=== PATIENT | female | born 1975 | race Caucasian/White ===

== ENCOUNTER 2021-10-22 21:52 | Outpatient (CLI) | payer OTHER, SELFPAY ==
[2021-10-22 22:09] LABS: Absolute Lymphocyte Count 2.59 X10^3/uL (0.83-4.51); Absolute Neutrophil Count 4.7 X10^3/uL (2.0-7.7); Basophil# 0.02 X10^3/uL; Basophil% 0.3 % (0-1); Eosinophil# 0.12 X10^3/uL; Eosinophils% 1.5 % (0-5); Hematocrit 44.1 % (37-47); Hemoglobin 14.2 g/dL (12.0-15.0); Lymphocyte # 2.59 X10^3/ul (0.83-4.51); Lymphocyte % 32.8 % (19-41); Mean Corp Hgb Conc 32.2 g/dL (32-36); Mean Corpuscular Hgb 29.1 pg (27.0-32.0); Mean Corpuscular Volume 90.4 fL (81-99); Mean Platelet Vol. 12.3 fl (6.2-12.0); Monocyte% 6.3 % (0-10); NRBC Flagged by Analyzer 0 % (0-5); Neutrophil # 4.65 X10^3/uL (2.7-7.7); Neutrophil % 58.8 % (47-70); Platelet Count 210 K/mm3 (150-450); RBC Distribution Width SD 42.7 fl (35.1-43.9); Red Blood Count 4.88 M/mm3 (4.2-5.4); White Blood Count 7.9 K/mm3 (4.4-11.0)
[2021-10-22 22:37] LABS: ALB/GLOB Ratio 1.1 RATIO (0.9-2.4); AST(SGOT) 19 U/L (15-37); Alanine Aminotransfer ALT/SGPT 42 U/L (13-56); Albumin, Serum 3.6 g/dL (3.2-5.0); Alkaline Phosphatase 97 U/L (45-117); Anion Gap 7 (5-15); BUN 16 mg/dL (7-18); BUN/Creat Ratio 21.5 RATIO (10-20); Chloride 104 mmol/L (98-107); Creatinine, Serum 0.74 mg/dL (0.55-1.02); EST Glomerular Filtration Rate 90 mL/min (>60); Est Glom Filt Rate - Afr Amer 108 mL/min (>60); Globulin 3.4 g/dL (2.2-4.2); Glucose 115 mg/dL (74-106); Potassium 4.2 mmol/L (3.5-5.1); Sodium Level 140 mmol/L (136-145)
[2021-10-22 23:08] LABS: Vitamin B12 286 pg/mL (211-911)
[2021-10-24 17:38] LABS: EBV Acute VCA IgM < 36.0 U/mL (0.0-35.9); EBV Nuclear Antigen IgG < 18.0 U/mL (0.0-17.9); EBV-VCA IgG < 18.0 U/mL (0.0-17.9)
[2021-10-25 15:08] LABS: Vitamin D 1,25-Dihydroxy 13.5 pg/mL (19.9-79.3)
[2021-10-25 19:53] LABS: ANTINUCLEAR ANTIBODIES DIRECT Negative (Negative)
== END 2021-10-22 23:59 | disposition short-term general hospital (02) ==
PROVIDERS: Visit Provider Nurse Practitioner
DX: E55.9 Vitamin D deficiency, unspecified (principal); E53.9 Vitamin B deficiency, unspecified; R73.9 Hyperglycemia, unspecified; M25.50 Pain in unspecified joint; K21.9 Gastro-esophageal reflux disease without esophagitis
CPT/HCPCS: 80053; 82607; 82652; 83036; 85025; 86038; 86225; 86235; 86664; 86665

== ENCOUNTER → 2023-07-13 | Outpatient (CLI) | payer OTHER, SELFPAY | END | disposition home or self-care (01) | PROVIDERS: PCP Nurse Practitioner; Visit Provider Nurse Practitioner | DX: R35.0 Frequency of micturition (principal) | CPT/HCPCS: 87086 ==

== ENCOUNTER 2024-06-02 09:08 | Emergency (ER) | payer OTHER, SELFPAY ==
[2024-06-02 09:08] VITALS: BP 161/100; PULSE 93; RESP 14; TEMP 36.8; O2SAT 96
[2024-06-02 09:11] VITALS: BMI 47.3
--- NOTE | 2024-06-02 10:15 | EDS_ITS ---
HPI History of Present Illness Chief Complaint: Allergic Reaction Narrative Narrative: 48-year-old female past medical history of borderline diabetes, rosacea, presents with a rash to her bilateral lower extremities along with redness and swelling that she has had since Thursday, almost 3 days ago. She relates history that she was diagnosed with a UTI last week at the [facility] clinic. She was placed on nitrofurantoin, but the urine culture returned and reportedly her antibiotics were ineffective so she was changed to ciprofloxacin. Thursday morning, 4 days ago she took ciprofloxacin as she has allergies to sulfa and to Augmentin as well as sulfa. She developed a raised, itchy rash and leg swelling of her bilateral lower extremities shortly thereafter within an hour. Since then, she states she feels feverish, has a headache, may be mildly nauseated. Her legs feel tight and swollen as is her skin is going to burst. [facility] Medical History Hypertension Osteoarthritis Depression Anxiety D AND C Asthmatic bronchitis Endometriosis Ovarian cyst Recurrent UTI OCD (obsessive compulsive disorder) Hyperthyroidism Hyperlipidemia Seasonal allergies Rosacea Home Medications ?Medication ?Instructions ?Recorded ?Last Taken ?Type ergocalciferol (vitamin D2) 1,250 1,250 mcg PO QWEEK 3 months #13 01/28/22 Unknown Rx mcg (50,000 unit) capsule caps epinephrine 0.3 mg/0.3 mL 0.3 ml IM ONCE #1 ea 07/03/22 Unknown Rx injection, auto-injector multivitamin 1 tab PO DAILY 08/08/22 Unknown History metformin 500 mg tablet 500 mg PO DAILY #90 tabs 07/13/23 Unknown Rx omeprazole 40 mg capsule,delayed See Rx Instructions .Route 07/13/23 Unknown Rx release .COMPLEX #90 caps sertraline 100 mg tablet 200 mg (2 x 100 mg) PO QDAY #180 07/13/23 Unknown Rx tabs ciprofloxacin HCl 500 mg tablet 500 mg PO BID #14 tabs 09/01/23 Unknown Rx (Cipro) phenazopyridine 200 mg tablet 200 mg PO TID PRN pain #14 tabs 09/01/23 Unknown Rx (Pyridium) aspirin 81 mg tablet,delayed 81 mg PO DAILY 06/02/24 Unknown History release (Adult Aspirin Regimen) prednisone 20 mg tablet 40 mg (2 x 20 mg) PO DAILY 10 days 06/02/24 Unknown Rx #20 tabs Allergy/AdvReac Type Severity Reaction Status Date / Time Sulfa (Sulfonamide Allergy Severe Confusion, Verified 06/02/24 09:09 Antibiotics) amoxicillin (From Augmentin) Allergy Mild Rash Verified 06/02/24 09:09 clavulanic acid (From Allergy Mild Rash Verified 06/02/24 09:09 Augmentin) ciprofloxacin (From Cipro) Allergy Rash Verified 06/02/24 09:09 adhesive tape AdvReac rash Verified 06/02/24 09:09 bee venom protein (honey bee) AdvReac UNCONSCIOUS Verified 06/02/24 09:09 NESS Family History Father Diabetes Heart disease High cholesterol Kidney disease Mother Kidney disease Aunt Diabetes Hypertension High cholesterol Grandfather CVA (cerebral vascular accident) Grandmother Thyroid disorder Other Bladder cancer Cancer FHx: kidney cancer Surgical History H/O removal of cyst Social History Smoking Status: Current every day smoker tobacco type: cigarettes second hand exposure: Yes ROS ROS ED ROS Narrative Constitutional: No fever, no chills. HEENT: No sore throat. No neck pain. No loss of vision. No rhinorrhea. Cardiovascular: No chest pain. No palpitations. No pedal edema. Respiratory: No cough, no shortness of breath. Abdominal: No abdominal pain. Questionable nausea. No vomiting. Genitourinary: No dysuria. No hematuria. Musculoskeletal: No myalgias. No arthralgias. Neurologic: No headaches. No dizziness. No lightheadedness. Skin: Positive raised, itchy rash bilateral lower extremities rash. Positive redness/change in color. Psychiatric: No depression. No anxiety. EXAM Physical Exam Narrative Exam Narrative: Afebrile. Vital signs noted. Nontoxic-appearing. HEENT: Normocephalic. Atraumatic. PERRL, EOMI. Neck soft and supple. No point tenderness or step off. No mucosal lesions. Cardiovascular: Regular rate and rhythm. No murmurs, rubs, or gallops appreciated. Respiratory: No tachypnea. Lungs clear to auscultation bilaterally. Gastrointestinal: Abdomen soft, nontender, with normoactive bowel sounds. No rebound or guarding. Neurological: Awake. Alert. Nonfocal, nonlateralizing. Skin: Positive maculopapular rash on bilateral lower extremities, nonblanchable. Mild swelling bilateral lower extremities equal and symmetric. Palpable dorsalis pedis pulses bilaterally. Musculoskeletal: Mild bilateral symmetric pedal edema. Full range of motion extremities. Const Vital Signs: 06/02/24 09:08 06/02/24 11:29 Temperature 98.2 F Temperature Source Temporal Pulse Rate 93 Respiratory Rate 14 Blood Pressure 161/100 H 137/91 H Blood Pressure Mean 120 106 Pulse Ox 96 Oxygen Delivery Method Room Air MDM MDM MDM Narrative Medical decision making narrative: Differential diagnosis includes but not limited to drug rash versus vasculitis. She not meeting any sepsis criteria currently, she is not hypotensive. I will obtain baseline laboratory work including a lactic acid, and she was given Solu- Medrol intravenously. I will obtain a UA as well as she has multiple allergies and is still having dysuria. Differential diagnosis also includes cellulitis of bilateral lower extremities. I have low concern for Haas-Abrney reaction. I reviewed her laboratory work and she has a normal white count of 8.6, hemoglobin normal at 14.9, platelet count slightly low at 120. This is new for her, but I do not feel that she requires any platelet transfusion. This may go along with more vasculitis type symptoms. He was advised to get this rechecked in the future. Her CMP is grossly unremarkable. Urinalysis obtained and reviewed and is negative for infection. After Solu-Medrol, she states she is feeling improved. States she is tired. I do feel she requires admission or further antibiotics. I will write her prescription for a burst of steroids for 10 days as I feel this is probably more of a drug reaction/localized allergic reaction. She was told to avoid use of Cipro in the future. I feel she can be discharged safely home with follow-up. Return instructions reviewed. Disposition is discharged home in stable condition. History & Record Review Discussion w/independent historian: Patient Lab Data Attestation: I reviewed the patient's lab results. Labs: Laboratory Results - last 24 hr 06/02/24 06/02/24 10:35 10:37 WBC 8.6 RBC 5.00 Hgb 14.9 Hct 45.8 MCV 91.6 MCH 29.8 MCHC 32.5 RDW Std Deviation 44.7 H RDW Coeff of Aman 13.2 Plt Count 120 L MPV 11.4 Immature Gran % (Auto) 0.400 Neut % (Auto) 72.0 H Lymph % (Auto) 17.6 L [place] % (Auto) 4.8 Eos % (Auto) 4.8 Baso % (Auto) 0.4 Absolute Neuts (auto) 6.2 Absolute Lymphs (auto) 1.51 Nucleated RBC % 0 Sodium 141 Potassium 3.8 Chloride 104 Carbon Dioxide 33.0 H Anion Gap 4 L BUN 7 Creatinine 0.71 Estim Creat Clear Calc 160.88 Est GFR (MDRD) Af Amer 114 Est GFR (MDRD) Non-Af 94 BUN/Creatinine Ratio 9.9 L Glucose 115 H Lactic Acid 1.2 Calcium 9.1 Total Bilirubin 0.40 AST 21 ALT 55 Alkaline Phosphatase 87 Total Protein 6.9 Albumin 3.4 Globulin 3.5 Albumin/Globulin Ratio 1.0 Urine Color Yellow Urine Clarity Clear Urine pH 7.0 Ur Specific [place] 1.010 Urine Protein 15 H Urine Glucose (UA) Normal Urine Ketones Negative Urine Occult Blood Negative Urine Nitrite Negative Urine Bilirubin Negative Urine Urobilinogen Normal Ur Leukocyte Esterase 25 H Urine RBC 0 SEEN Urine WBC 0-5 SEEN Ur Squamous Epith Cells 0 SEEN Urine Bacteria 1+ Urine Mucus 0 SEEN Discharge Plan Triage Chief Complaint: Allergic Reaction ED Provider: Paulino Donato Dx/Rx/DC Orders Clinical Impression: Allergic drug reaction, Drug rash, Thrombocytopenia Instructions: Thrombocytopenia, ED Allergic Reaction Local Other, ED Drug Reaction, Other Prescriptions: New prednisone 20 mg tablet 40 mg PO DAILY 10 Days Qty: 20 0RF No Action multivitamin Tablet 1 tab PO DAILY ergocalciferol (vitamin D2) 1,250 mcg (50,000 unit) capsule 1,250 mcg PO QWEEK 90 Days Qty: 13 3RF epinephrine 0.3 mg/0.3 mL auto-injector 0.3 ml IM ONCE Qty: 1 12RF Rx Instructions: as a single dose metformin 500 mg tablet 500 mg PO DAILY Qty: 90 3RF omeprazole 40 mg capsule,delayed release(DR/EC) See Rx Instructions .ROUTE .COMPLEX Qty: 90 3RF Dose Instruction: TAKE 1 CAPSULE BY MOUTH DAILY Rx Instructions: TAKE 1 CAPSULE BY MOUTH DAILY sertraline 100 mg tablet 200 mg PO QDAY Qty: 180 3RF ciprofloxacin HCl [Cipro] 500 mg tablet 500 mg PO BID Qty: 14 0RF phenazopyridine [Pyridium] 200 mg tablet 200 mg PO TID PRN (Reason: pain) Qty: 14 0RF aspirin [Adult Aspirin Regimen] 81 mg tablet,delayed release (DR/EC) 81 mg PO DAILY Primary Care Provider: Isabel Conde NP Referrals: Isabel Conde NP, [facility] [Primary Care Provider] - 3-5 Days Activity Restrictions/Additional Instructions: Avoid use of Cipro in the future. Start steroids tomorrow. Return with increased swelling of the legs, worsening rash, new or worsening symptoms. Take Benadryl at home, 25 to 50 mg every 6 hours especially for the next few days. You may need to have your platelets rechecked by your primary care provider. Print Language: Turkmen Disposition Disposition: Home, Self Care
[2024-06-02] MEDS: MethylPREDNISolone 125 MG/2 ML Vial 80 MG IV (10:32)
[2024-06-02 10:42] LABS: Absolute Lymphocyte Count 1.51 X10^3/uL (0.83-4.51); Absolute Neutrophil Count 6.2 X10^3/uL (2.0-7.7); Basophil# 0.03 X10^3/uL; Basophil% 0.4 % (0-1); Eosinophil# 0.41 X10^3/uL; Eosinophils% 4.8 % (0-5); Hematocrit 45.8 % (37-47); Hemoglobin 14.9 g/dL (12.0-15.0); Lymphocyte # 1.51 X10^3/ul (0.83-4.51); Lymphocyte % 17.6 % (19-41); Mean Corp Hgb Conc 32.5 g/dL (32-36); Mean Corpuscular Hgb 29.8 pg (27.0-32.0); Mean Corpuscular Volume 91.6 fL (81-99); Mean Platelet Vol. 11.4 fl (6.2-12.0); Monocyte# 0.41 X10^3/uL; Monocyte% 4.8 % (0-10); NRBC Flagged by Analyzer 0 % (0-5); Neutrophil # 6.17 X10^3/uL (2.7-7.7); Platelet Count 120 K/mm3 (150-450); RBC Distribution Width CV 13.2 % (11.6-14.6); RBC Distribution Width SD 44.7 fl (35.1-43.9); White Blood Count 8.6 K/mm3 (4.4-11.0)
[2024-06-02 10:45] LABS: Mucous, Urine 0 SEEN /hpf (<or=2+); Red Blood Cells-Urine 0 SEEN /hpf (0-5); Squamous Epithelial Cells - UA 0 SEEN /hpf (5-10)
[2024-06-02 10:54] LABS: Color, Urine Yellow (Yellow); Glucose, Dipstick Normal (Normal); Ketone-Dipstick Negative (Negative); Leukocyte Esterase-Dipstick 25 /ul (Negative); Nitrite-Dipstick Negative (Negative); Occult Blood-Urine Negative /ul (Negative); Protein-Dipstick 15 mg/dl (Negative); Urine Bilirubin Dipstick Negative (Negative); Urine Clarity Clear (Clear); Urine Urobilinogen Normal (Normal)
[2024-06-02 10:58] LABS: AST(SGOT) 21 U/L (15-37); Alanine Aminotransfer ALT/SGPT 55 U/L (13-56); Albumin, Serum 3.4 g/dL (3.2-5.0); Alkaline Phosphatase 87 U/L (45-117); Anion Gap 4 (5-15); BUN 7 mg/dL (7-18); BUN/Creat Ratio 9.9 RATIO (10-20); Calcium,Total 9.1 mg/dL (8.5-10.1); Chloride 104 mmol/L (98-107); Creatinine, Serum 0.71 mg/dL (0.55-1.02); EST Glomerular Filtration Rate 94 mL/min (>60); Est Glom Filt Rate - Afr Amer 114 mL/min (>60); Estimated Creatinine Clearance 160.88 ml/min; Globulin 3.5 g/dL (2.2-4.2); Glucose 115 mg/dL (74-106); Potassium 3.8 mmol/L (3.5-5.1); Protein, Total 6.9 g/dL (6.4-8.2); Sodium Level 141 mmol/L (136-145)
[2024-06-02 11:07] LABS: Lactic Acid 1.2 mmol/L (0.4-1.9)
[2024-06-02 11:16] LABS: Bacteria 1+ /hpf (None Seen); White Blood Cells 0-5 SEEN /hpf (0-5)
[2024-06-02 11:29] VITALS: BP 137/91
[2024-06-02 11:50] VITALS: BP 147/89; PULSE 93; RESP 18; TEMP 37.2; O2SAT 96
== END 2024-06-02 11:51 | disposition home or self-care (01) ==
PROVIDERS: Emergency Provider Emergency Medicine; PCP Nurse Practitioner; Visit Provider Emergency Medicine
DX: R21 Rash and other nonspecific skin eruption (principal); T36.8X5A Adverse effect of other systemic antibiotics, initial encounter; E78.5 Hyperlipidemia, unspecified; I10 Essential (primary) hypertension; D69.6 Thrombocytopenia, unspecified; R73.03 Prediabetes; F17.210 Nicotine dependence, cigarettes, uncomplicated; Z79.82 Long term (current) use of aspirin; Z79.84 Long term (current) use of oral hypoglycemic drugs; Z79.899 Other long term (current) drug therapy
CPT/HCPCS: 80053; 81001; 83605; 85025; 96374; 99284; A4216

== ENCOUNTER → 2024-06-27 | Outpatient (CLI) | payer OTHER, SELFPAY ==
[2024-06-27 20:58] LABS: Absolute Neutrophil Count 3.7 X10^3/uL (2.0-7.7); Basophil# 0.02 X10^3/uL; Basophil% 0.3 % (0-1); Eosinophil# 0.48 X10^3/uL; Eosinophils% 7.1 % (0-5); Hematocrit 43.9 % (37-47); Lymphocyte % 30.9 % (19-41); Mean Corp Hgb Conc 31.9 g/dL (32-36); Mean Corpuscular Hgb 30.2 pg (27.0-32.0); Mean Corpuscular Volume 94.8 fL (81-99); Mean Platelet Vol. 12.8 fl (6.2-12.0); Monocyte# 0.45 X10^3/uL; Monocyte% 6.6 % (0-10); NRBC Flagged by Analyzer 0 % (0-5); Neutrophil # 3.73 X10^3/uL (2.7-7.7); Neutrophil % 54.8 % (47-70); Platelet Count 168 K/mm3 (150-450); RBC Distribution Width CV 13.7 % (11.6-14.6); RBC Distribution Width SD 47.5 fl (35.1-43.9); Red Blood Count 4.63 M/mm3 (4.2-5.4); White Blood Count 6.8 K/mm3 (4.4-11.0)
[2024-06-30 12:10] LABS: Vitamin D 1,25-Dihydroxy 48.1 pg/mL (24.8-81.5)
== END | disposition home or self-care (01) ==
PROVIDERS: PCP Nurse Practitioner; Referring Provider Nurse Practitioner; Visit Provider Nurse Practitioner
DX: E55.9 Vitamin D deficiency, unspecified (principal); D69.6 Thrombocytopenia, unspecified
CPT/HCPCS: 82652; 85025